=== PATIENT | male | born 1955 | race Caucasian/White ===

== ENCOUNTER 2016-05-28 17:21 | Emergency (ER) | payer BC ==
[2016-05-28] MEDS ORDERED: LORazepam 1 MG Tab PO ONE (19:04)
[2016-05-28] MEDS ORDERED: levETIRAcetam 500 MG Tab PO SCH ×2 (19:10→21:00)
[2016-05-28 19:26] VITALS: BP 175/94
[2016-05-28] MEDS ORDERED: Temazepam 15 MG Cap PO SCH (21:00)
--- NOTE | 2016-05-30 15:16 | ER ---
DATE SEEN: 05/28/2016 TIME SEEN: The patient was seen at 1735 hours. CHIEF COMPLAINT: Left facial droop, face twitch. HISTORY OF PRESENT ILLNESS: This 61-year-old in 1996 had a stroke on the right side of his head, was an extensive stroke, involving large right middle cerebral artery area. He has had residual left hemiparesis. He has not regained his strength and spasticity continues with the left hemiparesis. He is able to walk with difficulty and limp, but it is nothing new. He and his noted he had a new facial droop more than usual and a new left facial twitch with decreased social interaction and a new concurrent sweet smell dysosmia. Patient denies headache, compromised vision, neck stiffness, shortness of breath, cough, chest pain, irregular heartbeat, abdominal discomfort, nausea, vomiting, diarrhea, new paresis in upper extremity, any change in strength in left upper and lower extremities. No gait changes. No history of fall. Patient is not diabetic. PAST MEDICAL HISTORY: Hypertension. CURRENT MEDICATIONS: 1. Atorvastatin 20 mg daily. 2. Atenolol 50 mg daily. 3. Aspirin 325 mg daily. REVIEW OF SYSTEMS: HEENT: No recent headache or fall. He denies compromise in his vision, neck stiffness, sinusitis, sore throat, neck pain. CARDIORESPIRATORY: Denies new chest pain, shortness of breath, cough, irregular heart beat. GI: Denies GI symptoms of nausea, vomiting, diarrhea, but had transient nausea that occurs with a short spell of twitching of the left side of his face and left facial droop. He notes that latter has occurred 5 to 10 times a day for the last 10 days. NEUROLOGIC: Denies loss of urine, tongue biting, backache. MUSCULOSKELETAL: No change. Has left hemiparesis with mild spasticity and difficulty with mild footdrop. ENDOCRINE: Negative. Does not feel hot or cold more than usual. PHYSICAL EXAMINATION: VITAL SIGNS: Blood pressure 220/115, pressure came down after he was in the ED, 173/75, 175/94. Heart rate 76. Respirations 18. Oxygen saturation 94% on room air. Pulse oximetry 76%. CONSTITUTIONAL: Overweight, short stature man in no acute distress. He is able to articulate what is going on. NECK: No neck stiffness. Has notable left hemiparesis with mild spasticity in left upper extremity. Mild wrist flexion. HEENT: PERRLA intact. Pharynx without abnormality. Gag is intact. Uvula is midline. Tongue is midline. No lacerations or cuts on his tongue or in the gingiva. No intraoral ecchymoses. NECK: No thyromegaly or masses in neck. No bruits in neck. Neck is supple. LUNGS: Clear to auscultation. HEART: S1, S2. No murmur. ABDOMEN: Soft. No guarding. No abdominal discomfort. EXTREMITIES: Without tenderness of the vascular structures or linear ropey abnormalities. No popliteal discomfort or ankle discomfort. MUSCULOSKELETAL/NEUROLOGIC: Marked spasticity, left upper and lower extremities. He can raise his left arm, 50% of normal, with mild pronator drift and instability and slight tremor. ( Decreased strength, left upper extremity 50%, left lower extremity 50%). Spasticity noted and he has a foot drop with decreased plantar flexion and dorsiflexion. I can pull his body down on the gurney by just taking the right foot in dorsiflexion because his strength is good. In the left foot, there is a giveaway - left ankle and left foot strength decreased. Deep tendon reflexes, hyperactive left side and less hyperactive right side. Sensation intact in upper and lower extremities. During this period of time, he had a 29-second episode of left facial droop with residual twitching of left orofacial muscles and transient expressive aphasia, which he regained readily after the seizure relented and facial symptoms relented to normal. WORKING DIAGNOSES: 1. Seizure. 2. Rule out irritant focus with central nervous system, previous right large middle cerebral artery cerebrovascular accident. DIAGNOSTIC DATA: CT of the head: CT of the head reveals large right volume loss in frontotemporoparietal region consistent with remote large right-sided middle cerebral artery territory infarct. No midline shift or hydrocephalus. No acute hemorrhage or infarction or abnormal extra-axial fluid collection. Moderate intracranial atherosclerosis and notable left superior ophthalmic vein enlargement and 10 x 7-mm lesion thought to be pushing on the venous structure. It was adjacent to the right medial globe of the eye, per axial image 2, series 2. ASSESSMENT: The patient's status was discussed with Dr. Casey at 1900 hours, [place] neurologist, who felt the patient had a seizure and status could be evaluated at a later date. Advised to start Keppra or Dilantin. The patient was given Keppra 500 mg b.i.d., also benzo as needed, 2 mg of benzo now to diminish the recurrent intermittent small episodes of seizure which last less than half a minute. DIAGNOSES: 1. Right middle cerebral artery large old cerebrovascular accident involving frontotemporoparietal region with volume loss and low attenuation. Resulting irritant focus for what is seen as a seizure episode with fasciculation and left facial droop. 2. Small focal 10 x 7 mm area of right medial soft tissue adjacent to the right medial globe of the eye, also left superior symmetrical ophthalmic vein dilation, rule out carotid sinus fistula. Recommend MRI of orbits. PLAN: 1. The patient was dismissed. 2. Was started on Keppra 500 mg b.i.d. and given a dose of Ativan 2 mg orally and will have temazepam 15 mg to take at bedtime. He has had no sleep for the last two nights because of the seizure-like activity. 3. Follow up with his doctor this week. 4. Arrangements made for patient to call epileptologist's office, [facility], . Follow up with his doctor in a week. /[id number] YOHANNES/KISHA HERNANDEZ
== END 2016-05-28 19:24 | disposition home or self-care (01) ==
LOC: FB.ED 17:21
DX: R56.9 Unspecified convulsions (principal); I69.359 Hemiplegia and hemiparesis following cerebral infarction affecting unspecified side; I10 Essential (primary) hypertension
CPT/HCPCS: 36415; 70450; 80053; 81001; 85025; 85610; 93005; 99284; A9270

== ENCOUNTER 2021-04-16 12:16 | Inpatient (IN) | payer MEDICARE, OTHER ==
[2021-04-16] MEDS ORDERED: methylPREDNISolone Sodium Succinate 125 MG/2 ML SDV IVPUSH ONE (12:52)
[2021-04-16] MEDS ORDERED: Ketorolac 30 MG/ML SDV IVPUSH ONE (12:54)
[2021-04-16] MEDS ORDERED: Lidocaine 4% 1 each Patch TOP STA (12:56)
[2021-04-16] MEDS ORDERED: Ondansetron 4 MG Tab.DIS PO PRN (16:39)
[2021-04-16] MEDS: Acetaminophen 500 MG Tab PO SCH ×2 (18:11→21:02)
[2021-04-16] MEDS: Ibuprofen 200 MG Tab PO SCH ×2 (18:12→21:03)
[2021-04-16] MEDS: Sodium Chloride 0.9% 10 ML Syringe FLUSH PRN (18:15)
[2021-04-16] MEDS ORDERED: atorvaSTATin 40 MG Tab *PTOM PO SCH (21:00)
[2021-04-16] MEDS: LEVETIRACETAM 1000 MG PO SCH (21:03)
[2021-04-16] MEDS: atorvaSTATin 40 MG Tab PO SCH (21:04)
[2021-04-16] MEDS: LIDOCAINE 4% TRDERM SCH (21:06)
[2021-04-17] MEDS: Ibuprofen 200 MG Tab PO SCH ×6 (01:30→21:16)
[2021-04-17] MEDS: Acetaminophen 500 MG Tab PO SCH ×6 (01:30→21:15)
[2021-04-17] MEDS: Lidocaine 4% 1 each Patch TOP SCH (08:49)
[2021-04-17] MEDS: CALCIUM VIT D3 PO SCH (08:50)
[2021-04-17] MEDS: Dexamethasone 4 MG/ML SDV IVPUSH SCH (08:51)
[2021-04-17] MEDS: LEVETIRACETAM 1000 MG PO SCH (08:52)
[2021-04-17] MEDS ORDERED: Aspirin 81 MG Tab.EC *PTOM PO SCH (09:00)
[2021-04-17] MEDS ORDERED: Aspirin 81 MG Tab.EC PO SCH (09:00)
[2021-04-17] MEDS ORDERED: ATENOLOL 50 MG PO SCH (09:00)
[2021-04-17] MEDS: levETIRAcetam 500 MG Tab PO SCH (21:15)
[2021-04-17] MEDS: atorvaSTATin 40 MG Tab PO SCH (21:15)
[2021-04-17] MEDS: LIDOCAINE 4% TRDERM SCH (21:17)
[2021-04-18] MEDS: Ibuprofen 200 MG Tab PO SCH ×6 (01:35→20:42)
[2021-04-18] MEDS: Acetaminophen 500 MG Tab PO SCH ×6 (01:36→20:42)
[2021-04-18] MEDS: Dexamethasone 4 MG/ML SDV IVPUSH SCH (08:22)
[2021-04-18] MEDS: Lidocaine 4% 1 each Patch TOP SCH (08:22)
[2021-04-18] MEDS: levETIRAcetam 500 MG Tab PO SCH ×2 (08:23→20:42)
[2021-04-18] MEDS: Aspirin 81 MG Tab.EC PO SCH (08:23)
[2021-04-18] MEDS: Atenolol 50 MG Tab PO SCH (08:24)
[2021-04-18] MEDS: LIDOCAINE 4% TRDERM SCH (20:42)
[2021-04-18] MEDS: atorvaSTATin 40 MG Tab PO SCH (20:42)
[2021-04-19] MEDS: Acetaminophen 500 MG Tab PO SCH ×6 (01:33→20:38)
[2021-04-19] MEDS: Ibuprofen 200 MG Tab PO SCH ×6 (01:33→20:40)
[2021-04-19] MEDS ORDERED: Calcium Carbonate 500 MG Tablet PO SCH (09:00)
[2021-04-19] MEDS: Atenolol 50 MG Tab PO SCH (09:11)
[2021-04-19] MEDS: Aspirin 81 MG Tab.EC PO SCH (09:12)
[2021-04-19] MEDS: levETIRAcetam 500 MG Tab PO SCH ×2 (09:13→20:40)
[2021-04-19] MEDS: Lidocaine 4% 1 each Patch TOP SCH (09:14)
[2021-04-19] MEDS: Sodium Chloride 0.9% 10 ML Syringe FLUSH PRN (09:15)
[2021-04-19] MEDS: Dexamethasone 4 MG/ML SDV IVPUSH SCH (09:15)
[2021-04-19] MEDS: CALCIUM VIT D3 PO SCH (09:25)
[2021-04-19] MEDS: atorvaSTATin 40 MG Tab PO SCH (20:40)
[2021-04-19] MEDS: LIDOCAINE 4% TRDERM SCH (20:41)
[2021-04-20] MEDS: Acetaminophen 500 MG Tab PO SCH ×3 (01:09→08:35)
[2021-04-20] MEDS: Ibuprofen 200 MG Tab PO SCH ×3 (01:09→08:43)
[2021-04-20 08:11] VITALS: BP 146/69; PULSE 56
[2021-04-20] MEDS: Aspirin 81 MG Tab.EC PO SCH (08:36)
[2021-04-20] MEDS: Atenolol 50 MG Tab PO SCH (08:37)
[2021-04-20] MEDS: levETIRAcetam 500 MG Tab PO SCH (08:38)
[2021-04-20] MEDS: Lidocaine 4% 1 each Patch TOP SCH (08:39)
== END 2021-04-20 10:49 | disposition swing bed (61) | DRG 552 ==
LOC: FB.ED 12:16 → FB.MS 16:37 → OBSVTOIN 04-17 15:11
PROVIDERS: ADMIT Family Medicine; ATTEND Family Medicine
DX: M51.16 Intervertebral disc disorders with radiculopathy, lumbar region (principal); I69.354 Hemiplegia and hemiparesis following cerebral infarction affecting left non-dominant side; I10 Essential (primary) hypertension; E78.5 Hyperlipidemia, unspecified; M62.830 Muscle spasm of back; Z20.822 Contact with and (suspected) exposure to COVID-19; R26.2 Difficulty in walking, not elsewhere classified; E78.00 Pure hypercholesterolemia, unspecified; Z79.82 Long term (current) use of aspirin; Z79.52 Long term (current) use of systemic steroids; Z87.891 Personal history of nicotine dependence; Z79.899 Other long term (current) drug therapy
CPT/HCPCS: 36415; 72100; 72148; 80048; 81001; 94150; 96374; 96375; 97162-GP; 97165-GO; 97530-GO; 97535-GO; 99217; 99219; 99225; 99282; 99285-25; A9270-GY; G0378; J1100; J1885; J2930; U0002

== ENCOUNTER 2021-04-20 10:49 | Inpatient (IN) | payer MEDICARE ==
[2021-04-20] MEDS: Acetaminophen 500 MG Tab PO SCH ×3 (12:46→20:47)
[2021-04-20] MEDS: Ibuprofen 200 MG Tab PO SCH ×3 (12:48→20:46)
[2021-04-20] MEDS: levETIRAcetam 500 MG Tab PO SCH (20:44)
[2021-04-20] MEDS: atorvaSTATin 40 MG Tab PO SCH (20:45)
[2021-04-21] MEDS: Acetaminophen 500 MG Tab PO SCH ×6 (01:07→20:51)
[2021-04-21] MEDS: Ibuprofen 200 MG Tab PO SCH ×6 (01:07→20:53)
[2021-04-21] MEDS: Lidocaine 4% 1 each Patch TOP SCH (08:48)
[2021-04-21] MEDS: levETIRAcetam 500 MG Tab PO SCH ×2 (08:50→20:50)
[2021-04-21] MEDS: Calcium Carbonate 500 MG Tablet PO SCH (08:52)
[2021-04-21] MEDS: Atenolol 50 MG Tab PO SCH (08:53)
[2021-04-21] MEDS: Aspirin 81 MG Tab.EC PO SCH (08:54)
[2021-04-21] MEDS: atorvaSTATin 40 MG Tab PO SCH (20:52)
[2021-04-22] MEDS: Acetaminophen 500 MG Tab PO SCH ×7 (01:22→21:04)
[2021-04-22] MEDS: Ibuprofen 200 MG Tab PO SCH ×7 (01:22→21:03)
[2021-04-22] MEDS: Aspirin 81 MG Tab.EC PO SCH (08:41)
[2021-04-22] MEDS: Lidocaine 4% 1 each Patch TOP SCH (08:41)
[2021-04-22] MEDS: levETIRAcetam 500 MG Tab PO SCH ×2 (08:42→21:03)
[2021-04-22] MEDS: Atenolol 50 MG Tab PO SCH (08:43)
[2021-04-22] MEDS: atorvaSTATin 40 MG Tab PO SCH (21:03)
[2021-04-23] MEDS: Ibuprofen 200 MG Tab PO SCH ×4 (01:10→13:33)
[2021-04-23] MEDS: Acetaminophen 500 MG Tab PO SCH ×4 (01:11→13:31)
[2021-04-23 05:20] VITALS: PULSE 61
[2021-04-23] MEDS: Calcium Carbonate 500 MG Tablet PO SCH (09:19)
[2021-04-23] MEDS: Aspirin 81 MG Tab.EC PO SCH (09:19)
[2021-04-23] MEDS: levETIRAcetam 500 MG Tab PO SCH (09:19)
[2021-04-23] MEDS: Lidocaine 4% 1 each Patch TOP SCH (09:20)
[2021-04-23] MEDS: Atenolol 50 MG Tab PO SCH (09:21)
[2021-04-23 09:23] VITALS: BP 134/57
== END 2021-04-23 16:00 | disposition home or self-care (01) | DRG 948 ==
LOC: FB.MS 10:49
PROVIDERS: ADMIT Family Medicine; ATTEND Family Medicine
DX: R53.81 Other malaise (principal); I69.354 Hemiplegia and hemiparesis following cerebral infarction affecting left non-dominant side; R26.2 Difficulty in walking, not elsewhere classified; M54.41 Lumbago with sciatica, right side; I10 Essential (primary) hypertension; E78.00 Pure hypercholesterolemia, unspecified; Z79.82 Long term (current) use of aspirin; Z79.899 Other long term (current) drug therapy
CPT/HCPCS: 94150; 97110-GP; 97116-GP; 97530-GO; 97530-GP; 97535-GO; 97542-GO; A9270-GY